=== PATIENT | male | born 1985 | race Caucasian/White ===

== ENCOUNTER 2022-10-25 19:56 | Emergency (ER) | payer OTHER ==
[2022-10-25] MEDS ORDERED: Promethazine 25 MG/ML SDV IM ONE (20:24)
[2022-10-25] MEDS ORDERED: HYDROmorphone 2 MG/ML SDV IM ONE (20:24)
[2022-10-25] MEDS ORDERED: Sodium Chloride 0.9% 1,000 ML IV ONE (21:11)
[2022-10-25] MEDS ORDERED: Sodium Chloride 0.9% 10 ML Syringe FLUSH PRN (21:11)
[2022-10-25] MEDS ORDERED: HYDROmorphone 2 MG/ML SDV IVPUSH ONE (21:14)
[2022-10-25] MEDS ORDERED: Iopamidol 755 Mg/ML 100 ML Bottle IV ONE (21:38)
[2022-10-25] MEDS ORDERED: Piperacillin/Tazobactam 4.5 GM in Sodium Chloride 0.9% 100 ML IV ONE (23:50)
[2022-10-26 00:11] LABS: HEMATOCRIT 40.4 % (38.3-50.1); HEMOGLOBIN 13.8 g/dL (12.9-17.7); MEAN CORPUSCULAR HEMOGLOBIN 31.7 pg (27.0-33.3); MEAN CORPUSCULAR VOLUME 93.1 fL (80.8-98.7); MEAN PLATELET VOLUME 7.5 fL (6.7-11.0); PLATELET COUNT,PLT 319 x10(3)uL (117-477); RED BLOOD CELL COUNT 4.34 x10(6)uL (3.90-5.90); RED CELL DISTRIBUTION WIDTH 14.1 % (12.4-15.0); WHITE BLOOD CELL COUNT,WBC 18.8 x10-3/uL (3.2-10.1)
[2022-10-26 00:13] LABS: BLOOD UREA NITROGEN,BUN 13 mg/dL (7-18); BUN/CREATININE RATIO 14.4 (9-20); CALCIUM 8.5 mg/dL (8.6-10.2); CARBON DIOXIDE,CO2 29 mmol/L (21-32); CHLORIDE,CL 101 mmol/L (100-110); CREATININE 0.9 mg/dL (0.70-1.30); ESTIMATED GFR 114 mL/min (>60); GLUCOSE RANDOM 102 mg/dL (80-116); POTASSIUM,K 3.9 mmol/L (3.5-5.3); SODIUM,NA 138 mmol/L (135-145)
[2022-10-26] MEDS ORDERED: Ketorolac 30 MG/ML SDV IVPUSH ONE (00:14)
[2022-10-26 00:19] LABS: A/G RATIO 1.6; ALANINE AMINOTRANSFERASE,ALT 37 U/L (12-36); ALBUMIN 4.4 g/dL (3.5-5.2); ALKALINE PHOSPHATASE 63 IU/L (56-112); ASPARTATE AMNIOTRANSFERASE,AST 42 IU/L (5-25); BILIRUBIN TOTAL 0.5 mg/dL (0.1-1.3); PROTEIN TOTAL,TP 7.2 g/dL (6.0-8.0)
[2022-10-26 00:22] LABS: LYMPHOCYTES PERCENT MAN 13 % (13-37); MONOCYTES PERCENT MAN 6 % (4-12); SEG NEUTROPHILS PERCENT MAN 81 % (46-82)
== END 2022-10-26 00:42 ==
LOC: FB.ED 19:56
DX: S21.132A Puncture wound without foreign body of left front wall of thorax without penetration into thoracic cavity, initial encounter (principal); S27.0XXA Traumatic pneumothorax, initial encounter; T70.4XXA Effects of high-pressure fluids, initial encounter; S27.309A Unspecified injury of lung, unspecified, initial encounter; F17.200 Nicotine dependence, unspecified, uncomplicated; W22.8XXA Striking against or struck by other objects, initial encounter
CPT/HCPCS: 36415; 71045; 71260; 80053; 85025; 96361; 96365; 96372; 96375; 99285; J1170; J1885; J2543; J2550; J3490; J7030; Q9967